=== PATIENT | female | born 2000 | race Caucasian/White ===

== ENCOUNTER 2021-01-16 20:39 | Emergency (ER) | payer BC ==
--- NOTE | 2021-01-16 22:28 | XR ---
INDICATION: Patient age:Female; 20 years old; Reason for study: left foot pain and swelling ; [facility]. COMPARISON: TECHNIQUE: The left foot examined in the AP, oblique, and lateral projections. FINDINGS: No evidence of any acute osseous pathology. No evidence of soft tissue swelling. Joints are preserve d. IMPRESSION: No evidence of acute fracture.
--- NOTE | 2021-01-16 22:30 | XR ---
EXAMINATION TYPE: XR ankle complete LT DATE OF EXAM: 01/16/2021 CLINICAL HISTORY: Pain TECHNIQUE: Frontal, lateral and oblique images of the left ankle are obtained. COMPARISON: Foot radiographs same day. FINDINGS: There is no acute fracture/dislocation evident in the left ankle. The ankle mortise appea rs within normal limits. The overlying soft tissue appears unremarkable. IMPRESSION: There is no acute fracture or dislocation in the left ankle.
--- NOTE | 2021-01-17 00:11 | ED ---
Lower Extremity Injury HPI - General Chief Complaint: Extremity Injury, Lower Stated Complaint: Extremity Pain,Lt Foot Time Seen by Provider: 01/17/21 00:09 Source: patient, family, RN notes reviewed, old records reviewed Mode of arrival: ambulatory Limitations: no limitations - History of Present Illness Initial Comments: This is a 20-year-old female to the emergency department for evaluation patient presents today for evaluation of foot pain patient is having left foot pain worse in the morning worse when she walks no significant other complaints. No specific trauma. Patient is able to ambulate without significant difficulty. MD Complaint: foot injury (left) -: week(s) Injury: Foot: Left, Toes: Left Type of Injury: hyperextension, hyperflexion Place: home Severity: moderate Severity scale (1-10): 6 Improves With: nothing Worsens With: weight bearing, movement, palpation Context: running, walking Associated Symptoms: swelling, numbness Treatments Prior to Arrival: NSAIDS - Related Data Allergies Allergy/AdvReac Type Severity Reaction Status Date / Time No Known Allergies Allergy Verified 01/16/21 21:35 Review of Systems ROS Statement: Those systems with pertinent positive or pertinent negative responses have been documented in the HPI. ROS Other: All systems not noted in ROS Statement are negative. Past Medical History Past Medical History: No Reported History History of Any Multi-Drug Resistant Organisms: None Reported Past Surgical History: No Surgical Hx Reported Past Psychological History: No Psychological Hx Reported Smoking Status: Never smoker Past Alcohol Use History: None Reported Past Drug Use History: None Reported General Exam Limitations: no limitations General appearance: alert, in no apparent distress Head exam: Present: atraumatic, normocephalic, normal inspection Eye exam: Present: normal appearance, PERRL, EOMI. Absent: scleral icterus, conjunctival injection, periorbital swelling ENT exam: Present: normal exam, mucous membranes moist Neck exam: Present: normal inspection. Absent: tenderness, meningismus, lymphadenopathy Respiratory exam: Present: normal lung sounds bilaterally. Absent: respiratory distress, wheezes, rales, rhonchi, stridor Cardiovascular Exam: Present: regular rate, normal rhythm, normal heart sounds. Absent: systolic murmur, diastolic murmur, rubs, gallop, clicks GI/Abdominal exam: Present: soft, normal bowel sounds. Absent: distended, tenderness, guarding, rebound, rigid Extremities exam: Present: normal inspection, full ROM, normal capillary refill. Absent: tenderness, pedal edema, joint swelling, calf tenderness Back exam: Present: normal inspection Neurological exam: Present: alert, oriented X3, CN II-XII intact Psychiatric exam: Present: normal affect, normal mood Skin exam: Present: warm, dry, intact, normal color. Absent: rash Course Vital Signs 01/16/21 21:31 Temperature 97.8 F Pulse Rate 99 Respiratory 20 Rate Blood Pressure 118/80 O2 Sat by Pulse 99 Oximetry - Reevaluation(s) Reevaluation #1: 01/17/21 01:17 Medical record is reviewed Reevaluation #2: 01/17/21 01:17 Patient informed results and questions answered Medical Decision Making - Medical Decision Making 20 female to the emergency department with signs and symptoms of left foot plantar fasciitis with symptoms improving throughout the day worse in the morning. Patient will continue Motrin and Tylenol given exercises and can be discharged home - Radiology Data Radiology results: report reviewed (XR left foot and ankle are negative for significant acute disease), image reviewed Disposition Clinical Impression: Left foot pain, Plantar fasciitis of left foot Disposition: HOME SELF-CARE Condition: Good Instructions (If sedation given, give patient instructions): Plantar Fasciitis (ED), Foot Sprain (ED), Plantar Fasciitis Exercises (ED) Is patient prescribed a controlled substance at d/c from ED?: No Referrals: None,Stated [Primary Care Provider] - 1-2 days
[2021-01-17 01:37] VITALS: PULSE 75; RESP 18
[2021-01-17 01:38] VITALS: BP 118/79; TEMP 98.3
== END 2021-01-17 01:39 | disposition home or self-care (01) ==
LOC: EC 20:39
DX: M72.2 Plantar fascial fibromatosis (principal)
CPT/HCPCS: 99283

== ENCOUNTER → 2021-04-20 | Outpatient (CLI) | payer BC ==
--- NOTE | 2021-04-20 11:47 | US ---
EXAMINATION TYPE: US kidneys/renal and bladder DATE OF EXAM: 04/20/2021 COMPARISON: NONE CLINICAL HISTORY: 20-year-old female E28.2 POLYCYSTIC OVARIAN SYNDROME, R/O adrenal mass. TECHNIQUE: Multiple sonographic images of the kidneys and bladder are obtained. FINDINGS: EXAM MEASUREMENTS: Right Kidney: 10.7 x 2.8 x 5.3 cm Left Kidney: 10.6 x 4.9 x 4.6 cm Right Kidney: No hydronephrosis or masses seen Superior to kidney scanned at area of adrenals. No evidence sonographic abnormality. Left Kidney: No hydronephrosis or masses seen. Superior to kidney is extensive overlying bowel gas, not well seen. Bladder: wnl IMPRESSION: 1. No hydronephrosis. 2. Suboptimal visualization above the left kidney due to bowel gas. 3. No obvious mass above the right kidney. Note that ultrasound has very limited utility in assessing the adrenal glands. If persistent concern for adrenal mass, a CT or MRI can be considered.
--- NOTE | 2021-04-20 11:50 | US ---
EXAMINATION TYPE: US transvaginal DATE OF EXAM: 04/20/2021 COMPARISON: NONE CLINICAL HISTORY: 20-year-old female E28.2 POLYCYSTIC OVARIAN SYNDROME. TECHNIQUE: Transvaginal (TV). Anatomy not well visualized transabdominally. Date of LMP: 04-19-21 FINDINGS: EXAM MEASUREMENTS: Uterus: 6.9 x 3.6 x 4.6 cm Endometrial Stripe: 0.4 cm Right Ovary: 4.3 x 1.6 x 1.5 cm for a volume of 5.4 mL. Left Ovary: 3.5 x 1.8 x 2.3 cm for a volume of 7.5 mL. 1. Uterus: Anteverted and otherwise wnl. Query a small scar along the anterior lower uter ine segment characterized by rounded hypoechoic area. If no prior section, this could represent some prominent mitral vessels. 2. Endometrium: wnl 3. Right Ovary: Multiple small follicles are noted, largest measuring 5 mm. 4. Left Ovary: Multiple small follicles are noted, largest measuring 6 mm. 5. Bilateral Adnexa: wnl 6. Posterior cul-de-sac: wnl IMPRESSION: 1. Endometrial stripe measuring 4 mm. 2. Query a small scar along the anterior lower uterine segment. If no prior surgery, this c ould represent some prominent myometrial vessels. 3. Ovarian volumes as above. There are numerous small follicles in both ovaries, largest measuring 6 mm.
== END | disposition home or self-care (01) ==
LOC: RADUSWWP 07:48
PROVIDERS: ATTEND Family Medicine
DX: E28.2 Polycystic ovarian syndrome (principal)
CPT/HCPCS: 76770; 76830

== ENCOUNTER → 2021-10-22 | Outpatient (CLI) | payer BC | END | disposition home or self-care (01) | LOC: LABWHC1 11:30 | PROVIDERS: ATTEND Obstetrics & Gynecology | DX: E55.9 Vitamin D deficiency, unspecified (principal); L68.0 Hirsutism; N95.1 Menopausal and female climacteric states | CPT/HCPCS: 36415; 82306; 82626; 83498; 83525; 84402 ==

== ENCOUNTER → 2022-01-05 | Outpatient (CLI) | payer BC ==
--- NOTE | 2022-01-05 09:35 | CA ---
Transthoracic Echo Report Name: Nba Coon Age: 21 Gender: F : 2000 Exam Date: 01/05/2022 08:35 Exam Location: [facility] Ht (in): 63 Wt (lb): 135 Ordering Physician: Subhash Orellana DO Attending/Referring Phys: Neuro Ophthalmologist Brittany Simons RDCS Procedure CPT: Indications: R00.2 palpitations Cardiac Hx: Technical Quality: Excellent Contrast 1: Total Dose (mL): Contrast 2: Total Dose (mL): MEASUREMENTS (Male / Female) Normal Values 2D ECHO LV Diastolic Diameter PLAX 3.8 cm 4.2 - 5.9 / 3.9 - 5.3 cm LV Systolic Diameter PLAX 2.6 cm IVS Diastolic Thickness 0.8 cm 0.6 - 1.0 / 0.6 - 0.9 cm LVPW Diastolic Thickness 0.8 cm 0.6 - 1.0 / 0.6 - 0.9 cm LV Relative Wall Thickness 0.4 RV Internal Dim ED PLAX 2.2 cm LA Systolic Diameter LX 2.6 cm 3.0 - 4.0 / 2.7 - 3.8 cm LA Volume 26.4 cm??? 18 - 58 / 22 - 52 cm??? M-MODE Aortic Root Diameter MM 2.5 cm MV E Point Septal Separation 0.3 cm AV Cusp Separation MM 1.8 cm DOPPLER AV Peak Velocity 148.2 cm/s AV Peak Gradient 8.8 mmHg MV Area PHT 5.0 cm??? Mitral E Point Velocity 96.0 cm/s Mitral A Point Velocity 64.2 cm/s Mitral E to A Ratio 1.5 MV Deceleration Time 150.7 ms MV E' Velocity 19.3 cm/s Mitral E to MV E' Ratio 5.0 TR Peak Velocity 183.6 cm/s TR Peak Gradient 13.5 mmHg Right Ventricular Systolic Press 18.5 mmHg FINDINGS Left Ventricle Left ventricular ejection fraction is estimated at 60-65 %. Left ventricular cavity size normal. Left ventricular wall thickness normal. Right Ventricle Normal right ventricular size and function. Right ventricular systolic pressure within normal limits. Right Atrium Normal right atrial size. Left Atrium Normal left atrial size. No evidence for an atrial septal defect. Mitral Valve Structurally normal mitral valve. No mitral stenosis, regurgitation or prolapse. Aortic Valve Trileaflet aortic valve. No aortic valve stenosis or regurgitation. Tricuspid Valve Structurally normal tricuspid valve. Trace to mild tricuspid regurgitation. Pulmonic Valve Structurally normal pulmonic valve. Trace to mild pulmonic regurgitation. Pericardium Normal pericardium. No pericardial effusion. Aorta Normal size aortic root and proximal ascending aorta. CONCLUSIONS Left ventricular ejection fraction 60-65% No mitral regurgitation Trace to mild tricuspid regurgitation RVSP 18 No pericardial effusion Previewed by: Dr. Efren Casanova DO (Electronically Signed) Final Date: 05 January 2022 09:34
== END | disposition home or self-care (01) ==
LOC: RADECHMAIN 07:22
PROVIDERS: ATTEND Family Medicine
DX: I07.1 Rheumatic tricuspid insufficiency (principal); R00.2 Palpitations; H53.2 Diplopia
CPT/HCPCS: 93306

== ENCOUNTER → 2022-01-09 | Outpatient (CLI) | payer BC ==
--- NOTE | 2022-01-09 12:00 | MR ---
EXAMINATION TYPE: MR brain wo/w con DATE OF EXAM: 01/09/2022 COMPARISON: None HISTORY: Diplopia, migraines, hearing issues, memory issues, tingling on half of body, twitching, ran dom extreme anxiety. TECHNIQUE: Multiplanar, multisequence images of the brain and brainstem is performed without and with IV contras t, utilizing 6 mL intravenous Gadavist . FINDINGS: On the T1-weighted sagittal images midline structures including the craniovertebral junction is the v entricles, basal cisterns and sulci over the convexities are within normal limits and there is no mas s effect or shift. On the FLAIR axial images there is no abnormal signal intensity throughout the brain parenchyma. Based on diffusion-weighted imaging, there is no diffusion restriction or acute ischemic event. Follo wing contrast administration, there is no pathological enhancement throughout the brain parenchyma. The posterior fossa including the brainstem, fourth ventricle and cerebellar pontine angles appear no rmal. The intraorbital contents appear normal and symmetric. Visualized paranasal sinuses and mastoid air c ells are well aerated. IMPRESSION: No significant abnormality seen.
== END | disposition home or self-care (01) ==
LOC: RADMRIMAIN 11:00
PROVIDERS: ATTEND Nurse Practitioner Family
DX: H53.2 Diplopia (principal)
CPT/HCPCS: 70553; A9585

== ENCOUNTER 2023-03-16 13:46 | Emergency (ER) | payer BC ==
--- NOTE | 2023-03-16 14:31 | ED ---
Headache HPI - General Source: patient, RN notes reviewed Mode of arrival: ambulatory Limitations: no limitations <Bessy Junior - Last Filed: 03/16/23 14:30> - General Source: RN notes reviewed, old records reviewed Mode of arrival: ambulatory Limitations: no limitations - History of Present Illness MD Complaint: other (Chest pain shortness of breath) -: days(s) Location: left Severity: mild Quality: sharp Consistency: constant Improves With: nothing Worsens With: none Associated Symptoms: weakness Other Symptoms: chest pain Treatments Prior to Arrival: none <Maco Erickson - Last Filed: 03/16/23 20:09> - General Chief Complaint: Headache Stated Complaint: Headache/chest pain Time Seen by Provider: 03/16/23 14:30 - History of Present Illness Initial Comments: Patient is a 22-year-old female presenting to the ER with a chief complaint of headache and chest pain. Patient states going on for the past 3-4 days. Patient does have a history of migraines. Patient states her chest pain does radiate to the back on her left side. She does endorse some mild shortness of breath. Denies any fevers or chills. (Bessy Junior) This is a 22-year-old female presenting with chest pain persistent chest pain or shortness of breath at times. Specially with activity. Patient has significant left lower extremity pain (Maco Erickson) - Related Data Home Medications Medication Instructions Recorded Confirmed Vit No.180/Iron/Folic 1 each PO DAILY 08/31/22 09/01/22 [ Plus Tablet] Previous Rx's Medication Instructions Recorded Ibuprofen [Motrin] 600 mg PO Q6H #40 tab 09/03/22 oxyCODONE HCL [OxyIR] 5 mg PO Q4HR PRN #18 tab 09/03/22 Allergies Allergy/AdvReac Type Severity Reaction Status Date / Time No Known Allergies Allergy Verified 09/01/22 06:30 Review of Systems ROS Other: All systems not noted in ROS Statement are negative. <Bessy Junior - Last Filed: 03/16/23 14:30> ROS Other: All systems not noted in ROS Statement are negative. <Maco Erickson - Last Filed: 03/16/23 20:09> ROS Statement: Those systems with pertinent positive or pertinent negative responses have been documented in the HPI. Past Medical History Past Medical History: No Reported History Additional Past Medical History / Comment(s): Migraines History of Any Multi-Drug Resistant Organisms: None Reported Past Surgical History: Adenoidectomy, Cholecystectomy, Tonsillectomy Past Anesthesia/Blood Transfusion Reactions: No Reported Reaction Past Psychological History: ADD/ADHD Smoking Status: Never smoker Past Alcohol Use History: None Reported Past Drug Use History: None Reported - Past Family History Mother Family Medical History: Cancer, CVA/TIA, Diabetes Mellitus Additional Family Medical History / Comment(s): Factor V leiden Father Family Medical History: Hypertension, Pulmonary Embolus <Bessy Junior - Last Filed: 03/16/23 14:30> General Exam Limitations: no limitations <Bessy Junior - Last Filed: 03/16/23 14:30> General appearance: alert, in no apparent distress, anxious Head exam: Present: atraumatic, normocephalic, normal inspection Eye exam: Present: normal appearance, PERRL, EOMI. Absent: scleral icterus, conjunctival injection, periorbital swelling ENT exam: Present: normal exam, mucous membranes moist Neck exam: Present: normal inspection. Absent: tenderness, meningismus, lymphadenopathy Respiratory exam: Present: normal lung sounds bilaterally. Absent: respiratory distress, wheezes, rales, rhonchi, stridor Cardiovascular Exam: Present: regular rate, normal rhythm, normal heart sounds. Absent: systolic murmur, diastolic murmur, rubs, gallop, clicks GI/Abdominal exam: Present: soft, normal bowel sounds. Absent: distended, tenderness, guarding, rebound, rigid Extremities exam: Present: normal inspection, full ROM, normal capillary refill. Absent: tenderness, pedal edema, joint swelling, calf tenderness Back exam: Present: normal inspection Neurological exam: Present: alert, oriented X3, CN II-XII intact Psychiatric exam: Present: normal affect, normal mood Skin exam: Present: warm, dry, intact, normal color. Absent: rash <Maco Erickson - Last Filed: 03/16/23 20:09> - General Exam Comments Initial Comments: Visual Physical Exam Vital signs reviewed General: Well-appearing, nontoxic, no acute distress. Head: Normocephalic, atraumatic Eyes: PERRLA, EOMI ENT: Airway patent Chest: Nonlabored breathing Skin: No visual rash, normal skin tone Neuro: Alert and oriented 3 Musculoskeletal: No gross abnormalities (Bessy Junior) Course <Maco Erickson - Last Filed: 03/16/23 20:09> Vital Signs 03/16/23 03/16/23 03/16/23 14:12 16:35 17:33 Temperature 98.7 F Pulse Rate 120 H 97 104 H Respiratory 20 18 Rate Blood Pressure 131/91 119/66 O2 Sat by Pulse 99 100 99 Oximetry 03/16/23 20:00 Temperature Pulse Rate 73 Respiratory 18 Rate Blood Pressure 123/81 O2 Sat by Pulse 100 Oximetry - Reevaluation(s) Reevaluation #1: 03/16/23 19:14 Medical records reviewed (Maco Erickson) Reevaluation #2: 03/16/23 19:14 Patient symptoms are improved (Maco Erickson) Reevaluation #3: 03/16/23 19:15 Patient reported results questions answered (Maco Erickson) Reevaluation #4: 03/16/23 19:18 Was pt. sent in by a medical professional or institution (, PA, [facility], urgent care, hospital, or senior care...) When possible be specific @ -no Did you speak to anyone other than the patient for history (EMS, parent, family, police, friend...)? What history was obtained from this source @ -no Did you review nursing and triage notes (agree or disagree)? Why? @ -agree Are old charts reviewed (outside hosp., previous admission, EMS record, old EKG, old radiological studies, urgent care reports/EKG's, senior care records)? Report findings @ -yes Differential Diagnosis (chest pain, altered mental status, abdominal pain women, abdominal pain men, vaginal bleeding, weakness, fever, dyspnea, syncope, headache, dizziness, GI bleed, back pain, seizure, CVA, palpatations, mental health, musculoskeletal)? @ -prior EKG interpreted by me (3pts min.). @ -yes X-rays interpreted by me (1pt min.). @ -yes negative for acute disease CT interpreted by me (1pt min.). @ -no U/S interpreted by me (1pt. min.). @ -no What testing was considered but not performed or refused? (CT, X-rays, U/S, labs)? Why? @ -none What meds were considered but not given or refused? Why? @ -none Did you discuss the management of the patient with other professionals (professionals i.e. , PA, [facility], lab, RT, psych nurse, social sciences lecturer, plasma table operator, teacher, operational intelligence officer, patient case coordinator)? Give summary @ -no Was smoking cessation discussed for >3mins.? @ -no Was critical care preformed (if so, how long)? @ -no Were there social determinants of health that impacted care today? How? (Homelessness, low income, unemployed, alcoholism, drug addiction, transportation, low edu. Level, literacy, decrease access to med. care, mcc, re hab)? @ -none Was there de-escalation of care discussed even if they declined (Discuss DNR or withdrawal of care, Hospice)? DNR status @ -no What co-morbidities impacted this encounter? (DM, HTN, Smoking, COPD, CAD, Cancer, CVA, ARF, Chemo, Hep., AIDS, mental health diagnosis, sleep apnea, morbid obesity)? @ -none Was patient admitted / discharged? Hospital course, mention meds given and route, prescriptions, significant lab abnormalities, going to OR and other pertinent info. @ - Undiagnosed new problem with uncertain prognosis? @ -no Drug Therapy requiring intensive monitoring for toxicity (Heparin, Nitro, Insulin, Cardizem)? @ -no Were any procedures done? @ -no Diagnosis/symptom? @ - Acute, or Chronic, or Acute on Chronic? @ -Acute Uncomplicated (without systemic symptoms) or Complicated (systemic symptoms)? @ -Complicated Side effects of treatment? @ -no Exacerbation, Progression, or Severe Exacerbation? @ -exacerbation Poses a threat to life or bodily function? How? (Chest pain, [place], [place], pneumonia, PE, COPD, DKA, ARF, appy, cholecystitis, CVA, Diverticulitis, Homicidal, Suicidal, threat to staff... and all critical care pts) @ -yes (Maco Erickson) Reevaluation #5: 03/16/23 19:15 Differential Chest Pain: Stable Angina, Unstable Angina, STEMI, NSTEMI Aortic Dissection, Pneumothorax, Musculoskeletal, Esophageal Spasm GERD, Cholecystitis, Pancreatitis, Zoster, this is not meant to be an all-inclusive list. (Maco Erickson) Medical Decision Making <Bessy Junior - Last Filed: 03/16/23 14:30> - Lab Data Result diagrams: 03/16/23 16:19 03/16/23 16:19 - EKG Data -: EKG Interpreted by Me (EKG is sinus tachycardia 118 AL 124 QRS 84 QTc 410) <Maco Erickson - Last Filed: 03/16/23 20:09> - Medical Decision Making I performed the quick note portion of the exam. Electronically signed by Bessy Junior PA-C (Bessy Junior) - Lab Data Lab Results 03/16/23 03/16/23 03/16/23 Range/Units 16:19 16:19 16:19 WBC 7.0 (3.8-10.6) k/uL RBC 4.87 (3.80-5.40) m/uL Hgb 14.7 (11.4-16.0) gm/dL Hct 42.7 (34.0-46.0) % MCV 87.7 (80.0-100.0) fL MCH 30.1 (25.0-35.0) pg MCHC 34.3 (31.0-37.0) g/dL RDW 12.8 (11.5-15.5) % Plt Count 230 (150-450) k/uL MPV 8.4 Neutrophils % 69 % Lymphocytes % 24 % Monocytes % 5 % Eosinophils % 1 % Basophils % 0 % Neutrophils # 4.9 (1.3-7.7) k/uL Lymphocytes # 1.7 (1.0-4.8) k/uL Monocytes # 0.3 (0-1.0) k/uL Eosinophils # 0.1 (0-0.7) k/uL Basophils # 0.0 (0-0.2) k/uL PT 11.3 (10.0-12.5) sec INR 1.0 (<1.2) APTT 25.2 (22.0-30.0) sec D-Dimer <0.17 (<0.60) mg/L FEU Sodium 138 (137-145) mmol/L Potassium 4.3 (3.5-5.1) mmol/L Chloride 106 (98-107) mmol/L Carbon Dioxide 24 (22-30) mmol/L Anion Gap 8 mmol/L BUN 9 (7-17) mg/dL Creatinine 0.66 (0.52-1.04) mg/dL Est GFR (CKD-EPI)AfAm >90 (>60 ml/min/1.73 sqM) Est GFR (CKD-EPI)NonAf >90 (>60 ml/min/1.73 sqM) Glucose 94 (74-99) mg/dL Calcium 9.6 (8.4-10.2) mg/dL Phosphorus 3.3 (2.5-4.5) mg/dL Magnesium 1.7 (1.6-2.3) mg/dL Total Bilirubin 0.5 (0.2-1.3) mg/dL AST 21 (14-36) U/L ALT 15 (4-34) U/L Alkaline Phosphatase 95 (38-126) U/L Troponin I (0.000-0.034) ng/mL NT-Pro-B Natriuret Pep 25 pg/mL Total Protein 7.6 (6.3-8.2) g/dL Albumin 4.8 (3.5-5.0) g/dL HCG, Qual Influenza Type A (PCR) (Not Detectd) Influenza Type B (PCR) (Not Detectd) RSV (PCR) (Not Detectd) SARS-CoV-2 (PCR) (Not Detectd) 03/16/23 03/16/23 03/16/23 Range/Units 16:19 16:19 16:19 WBC (3.8-10.6) k/uL RBC (3.80-5.40) m/uL Hgb (11.4-16.0) gm/dL Hct (34.0-46.0) % MCV (80.0-100.0) fL MCH (25.0-35.0) pg MCHC (31.0-37.0) g/dL RDW (11.5-15.5) % Plt Count (150-450) k/uL MPV Neutrophils % % Lymphocytes % % Monocytes % % Eosinophils % % Basophils % % Neutrophils # (1.3-7.7) k/uL Lymphocytes # (1.0-4.8) k/uL Monocytes # (0-1.0) k/uL Eosinophils # (0-0.7) k/uL Basophils # (0-0.2) k/uL PT (10.0-12.5) sec INR (<1.2) APTT (22.0-30.0) sec D-Dimer (<0.60) mg/L FEU Sodium (137-145) mmol/L Potassium (3.5-5.1) mmol/L Chloride (98-107) mmol/L Carbon Dioxide (22-30) mmol/L Anion Gap mmol/L BUN (7-17) mg/dL Creatinine (0.52-1.04) mg/dL Est GFR (CKD-EPI)AfAm (>60 ml/min/1.73 sqM) Est GFR (CKD-EPI)NonAf (>60 ml/min/1.73 sqM) Glucose (74-99) mg/dL Calcium (8.4-10.2) mg/dL Phosphorus (2.5-4.5) mg/dL Magnesium (1.6-2.3) mg/dL Total Bilirubin (0.2-1.3) mg/dL AST (14-36) U/L ALT (4-34) U/L Alkaline Phosphatase (38-126) U/L Troponin I <0.012 (0.000-0.034) ng/mL NT-Pro-B Natriuret Pep pg/mL Total Protein (6.3-8.2) g/dL Albumin (3.5-5.0) g/dL HCG, Qual Not Detected Influenza Type A (PCR) Not Detected (Not Detectd) Influenza Type B (PCR) Not Detected (Not Detectd) RSV (PCR) Not Detected (Not Detectd) SARS-CoV-2 (PCR) Not Detected (Not Detectd) Disposition <Bessy uJnior - Last Filed: 03/16/23 14:30> Is patient prescribed a controlled substance at d/c from ED?: No Time of Disposition: 20:10 <Maco Erickson - Last Filed: 03/16/23 20:09> Clinical Impression: Chest pain, Headache Disposition: HOME SELF-CARE Condition: Good Instructions (If sedation given, give patient instructions): Chest Pain (ED) Referrals: Subhash Orellana DO [Primary Care Provider] - 1-2 days
[2023-03-16 14:42] VITALS: TEMP 98.7
--- NOTE | 2023-03-16 15:45 | XR ---
EXAMINATION TYPE: XR chest 2V DATE OF EXAM: 03/16/2023 3:41 PM CLINICAL INDICATION:Female, 22 years old with history of chest pain; [facility] COMPARISON: None TECHNIQUE: XR chest 2V Frontal and lateral views of the chest. FINDINGS: Lungs/Pleura: There is no evidence of pleural effusion, focal consolidation, or pneumothorax. Pulmonary vascularity: Unremarkable. Heart/mediastinum: Cardiomediastinal silhouette is unremarkable. Musculoskeletal: No acute osseous pathology. Other findings: None IMPRESSION: No acute cardiopulmonary disease/process.
[2023-03-16] MEDS: SODIUM CHLORIDE 0.9% 1,000 ML IV STA (16:34)
[2023-03-16 16:43] LABS: Basophils % (A) 0 %; Eosinophils # (A) 0.1 k/uL (0-0.7); Eosinophils % (A) 1 %; HCT 42.7 % (34.0-46.0); HGB 14.7 gm/dL (11.4-16.0); Lymphocytes # (A) 1.7 k/uL (1.0-4.8); Lymphocytes % (A) 24 %; MCH 30.1 pg (25.0-35.0); MCHC 34.3 g/dL (31.0-37.0); MCV 87.7 fL (80.0-100.0); Mean Platelet Volume 8.4; Monocytes # (A) 0.3 k/uL (0-1.0); Monocytes % (A) 5 %; Neutrophils # (A) 4.9 k/uL (1.3-7.7); Neutrophils % (A) 69 %; Platelet Count 230 k/uL (150-450); RBC 4.87 m/uL (3.80-5.40); RDW 12.8 % (11.5-15.5)
[2023-03-16 16:56] LABS: ALT 15 U/L (4-34); AST 21 U/L (14-36); African American GFR (CKD) >90 (>60 ml/min/1.73 sqM); Albumin 4.8 g/dL (3.5-5.0); Alkaline Phosphatase 95 U/L (38-126); Anion Gap 8 mmol/L; Blood Urea Nitrogen 9 mg/dL (7-17); Calcium 9.6 mg/dL (8.4-10.2); Carbon Dioxide 24 mmol/L (22-30); Chloride 106 mmol/L (98-107); Glucose 94 mg/dL (74-99); Magnesium 1.7 mg/dL (1.6-2.3); Non-African American GFR(CKD) >90 (>60 ml/min/1.73 sqM); Phosphorus 3.3 mg/dL (2.5-4.5); Potassium 4.3 mmol/L (3.5-5.1); Sodium 138 mmol/L (137-145); Total Bilirubin 0.5 mg/dL (0.2-1.3); Total Protein 7.6 g/dL (6.3-8.2)
[2023-03-16 17:04] LABS: NT-Pro-B-Type Natriuretic Pept 25 pg/mL
[2023-03-16] MEDS: diphenhydrAMINE 50 MG/ML 1 ML VIAL IVP STA (17:23)
--- NOTE | 2023-03-16 17:24 | US ---
EXAMINATION TYPE: US venous doppler duplex LE LT DATE OF EXAM: 03/16/2023 4:57 PM COMPARISON: NONE CLINICAL INDICATION: Female, 22 years old with history of DVT; pain SIDE PERFORMED: Left TECHNIQUE: The lower extremity deep venous system is examined utilizing real time linear array sonog cesario with graded compression, doppler sonography and color-flow sonography. VESSELS IMAGED: Common Femoral Vein Deep Femoral Vein Greater Saphenous Vein * Femoral Vein Popliteal Vein Small Saphenous Vein * Proximal Calf Veins (* superficial vessels) Left Leg: Negative for DVT IMPRESSION: Grayscale, color doppler, spectral doppler imaging performed of the deep veins of the lo wer extremities. There is normal flow, compressibility, vascular waveforms.
[2023-03-16 17:25] LABS: Partial Thromboplastin Time 25.2 sec (22.0-30.0); Prothrombin Time 11.3 sec (10.0-12.5)
[2023-03-16] MEDS: PROCHLORPERAZINE INJ 10 MG/2 ML VIAL IVP STA (17:26)
[2023-03-16] MEDS: KETOROLAC 15 MG/ML 1 ML VIAL IVP STA (17:27)
[2023-03-16 17:52] VITALS: RESP 18
--- NOTE | 2023-03-16 19:46 | CT ---
EXAMINATION TYPE: CT angio chest CT DLP: 269.1 mGycm, Automated exposure control for dose reduction was used. DATE OF EXAM: 03/16/2023 7:06 PM COMPARISON: Chest radiograph same day CLINICAL INDICATION:Female, 22 years old with history of PE; SWANSON and CP x3days. Pressure to forehead. R/O PE. TECHNIQUE/CONTRAST: CTA scan of the thorax is performed with IV Contrast, patient injected with 100ml mL of Isovue 370, M IP images are created and reviewed these are created on a separate workstation.. FINDINGS: Pulmonary Artery: There is no evidence for a filling defect within the pulmonary vasculature to sugge st acute pulmonary embolism. The pulmonary artery is of normal size. Lungs/Pleura: No evidence of focal consolidation, pleural effusion or pneumothorax. Airway: Large airways are patent. Heart: Heart is within normal limits for size. Vasculature: No evidence of aortic aneurysm. Mediastinum: No gross evidence of adenopathy. Musculoskeletal: No acute osseous abnormalities. Mild scoliosis changes of the spine which may be par tially due to patient positioning. Soft Tissues: Unremarkable. Lower neck: No significant findings. Upper Abdomen: No significant findings. IMPRESSION: No evidence of pulmonary embolism.
[2023-03-16 20:29] VITALS: BP 123/81; PULSE 73
== END 2023-03-16 20:35 | disposition home or self-care (01) ==
LOC: EC 13:46
DX: R51.9 Headache, unspecified (principal); R07.89 Other chest pain; Z20.822 Contact with and (suspected) exposure to COVID-19; R00.0 Tachycardia, unspecified
CPT/HCPCS: 36415; 93005; 85379; 83880; 80053; 83735; 84100; 84484; 85025; 85610; 85730; 84703; 87636; 71046; 93971; 71275; 99285; 96374; 96375 ×2; J1200; J0780; J1885; Q9967

== ENCOUNTER → 2023-03-30 | Outpatient (CLI) | payer BC ==
--- NOTE | 2023-03-31 00:23 | CA ---
Transthoracic Echo Report Name: Nba Coon Age: 22 Gender: F : 2000 Exam Date: 03/30/2023 17:54 Exam Location: [facility] Ht (in): 63 Wt (lb): 140 Ordering Physician: Subhash Orellana DO Attending/Referring Phys: Hanny Puga [facility] Computer Graphic Artist Jessica Crockett RDCS Procedure CPT: Indications: R06.09 Other forms of dyspnea Cardiac Hx: Technical Quality: Fair Contrast 1: Total Dose (mL): Contrast 2: Total Dose (mL): MEASUREMENTS (Male / Female) Normal Values 2D ECHO LV Diastolic Diameter PLAX 3.5 cm 4.2 - 5.9 / 3.9 - 5.3 cm LV Systolic Diameter PLAX 2.3 cm IVS Diastolic Thickness 0.9 cm 0.6 - 1.0 / 0.6 - 0.9 cm LVPW Diastolic Thickness 0.8 cm 0.6 - 1.0 / 0.6 - 0.9 cm LV Relative Wall Thickness 0.5 RV Internal Dim ED PLAX 1.9 cm LA Volume 18.3 cm??? 18 - 58 / 22 - 52 cm??? LA Volume Index 10.8 cm???/m??? 16 - 28 cm???/m??? M-MODE Aortic Root Diameter MM 2.5 cm LA Systolic Diameter MM 2.7 cm LA Ao Ratio MM 1.1 AV Cusp Separation MM 2.0 cm DOPPLER AV Peak Velocity 110.6 cm/s AV Peak Gradient 4.9 mmHg AV Mean Velocity 75.6 cm/s AV Mean Gradient 2.6 mmHg AV Velocity Time Integral 18.1 cm LVOT Peak Velocity 102.3 cm/s LVOT Peak Gradient 4.2 mmHg LVOT Velocity Time Integral 17.7 cm MV Area PHT 3.2 cm??? Mitral E Point Velocity 85.5 cm/s Mitral A Point Velocity 100.6 cm/s Mitral E to A Ratio 0.8 MV Deceleration Time 237.6 ms MV E' Velocity 9.8 cm/s Mitral E to MV E' Ratio 8.7 TR Peak Velocity 174.1 cm/s TR Peak Gradient 12.1 mmHg Right Ventricular Systolic Press 17.1 mmHg FINDINGS Left Ventricle Normal Left ventricular size, wall thickness, systolic function with no obvious regional wall motion abnormalities. Normal Left ventricular diastolic filling pattern. Left ventricular ejection fraction is estimated at 55-60 %. Right Ventricle Normal right ventricular size and function. Right ventricular systolic pressure within normal limits. Right Atrium Normal right atrial size. Left Atrium Normal left atrial size. Mitral Valve Structurally normal mitral valve. No mitral stenosis, regurgitation or prolapse. Aortic Valve Trileaflet aortic valve. No aortic valve stenosis or regurgitation. Tricuspid Valve Structurally normal tricuspid valve. Trace tricuspid regurgitation. Pulmonic Valve Structurally normal pulmonic valve. Pericardium No pericardial effusion. Aorta Normal size aortic root and proximal ascending aorta. CONCLUSIONS Normal left ventricular ejection fraction 55-60% No mitral regurgitation Trace tricuspid regurgitation RVSP 17 Previewed by: Dr. Efren Casanova DO (Electronically Signed) Final Date: 31 March 2023 00:22
== END | disposition home or self-care (01) ==
LOC: RADECHMAIN 17:41
PROVIDERS: ATTEND Family Medicine
DX: I36.1 Nonrheumatic tricuspid (valve) insufficiency (principal); R06.09 Other forms of dyspnea
CPT/HCPCS: 93306

== ENCOUNTER 2023-07-24 07:30 | Day surgery (SDC) | payer BC ==
[2023-07-24 07:48] VITALS: BP 127/76; PULSE 93; RESP 18; TEMP 98.5
[2023-07-24] MEDS: IV FLUID CONTINUATION 1,000 ML IV ONE (07:49)
[2023-07-24] MEDS: SODIUM CHLORIDE 0.9% 1,000 ML IV SCH (07:49)
--- NOTE | 2023-07-25 18:25 | P.EPPROC ---
- EP Procedure Note Electrophysiology Procedure Note: Diagnosis Recurrent syncope Twelve-lead EKG shows sinus mechanism 89 beats a minute normal CT narrow QRS normal QT interval Baseline blood pressure 123/76 mmHg baseline heart rate 90 beats a minute Patient was tilted upright from angle of 70 degrees per protocol. No significant change in heart rate or blood pressure in the first 10 minutes Subsequently she had mild sinus tachycardia. She continued to complain of being lightheaded with a headache and a feeling of an adrenaline flores She was laid supine in the end of the procedure Impression Normal twelve-lead EKG No evidence for neurocardiogenic syncope No evidence for orthostatic intolerance No evidence for dysautonomia Patient complained of a variety of symptoms including lightheadedness seeing spots adrenaline flores nausea. She was symptomatic when her heart rate was between 110 220 beats a minute but the heart rate and blood pressure response did not conform to orthostatic intolerance. She was symptomatic during sinus tachycardia
== END 2023-07-24 10:41 | disposition home or self-care (01) ==
LOC: CATHEP 07:30
PROVIDERS: ATTEND Internal Medicine Clinical Cardiac Electrophysiology
DX: O99.891 Other specified diseases and conditions complicating pregnancy (principal); R55 Syncope and collapse; R00.2 Palpitations; R07.89 Other chest pain; R06.00 Dyspnea, unspecified; R94.39 Abnormal result of other cardiovascular function study; Z3A.31 31 weeks gestation of pregnancy; Z79.899 Other long term (current) drug therapy
CPT/HCPCS: 81025; 93660

== ENCOUNTER 2023-12-01 19:28 | Emergency (ER) | payer BC ==
--- NOTE | 2023-12-01 19:51 | ED ---
Headache HPI <KojoMary - Last Filed: 12/01/23 19:48> <Shadia Camarillo - Last Filed: 12/02/23 17:53> - General Stated Complaint: Migraine Time Seen by Provider: 12/01/23 19:48 - History of Present Illness Initial Comments: Quick [id number] female presenting for headache x 8 days. Patient states she does have a history of migraines with aura however reports this feels different and is not relieved with migraine medication. Also reports she had a syncopal event 6 days ago after a hot shower, however reports she was laying reed n in bed when the episode occurred and did not hit her head or obtain any injuries. States she does have history of syncopal episodes. Also is complaining of urinary frequency, lower abdominal cramping, and white clumps in her urine. She also reports she is having some intermittent chest tightness. (Mary Varma) 23-year-old female presenting with multiple complaints. Patient reports that she has had a headache for the last 8 days. She does have history of migraine w ith aura. She takes ibuprofen and Ubrelvy, however this has not alleviated her headache. She also reports that 6 days ago after taking a hot shower she started to experience a ringing in her ears and she knew she was about to pass out. She sat down and briefly passed out. She does have history of syncopal episodes. She is also complaining of urinary frequency. She states that at times she sees white clumps in her urine. (Shadia Camarillo) - Related Data Previous Rx's Medication Instructions Recorded Ketorolac [Toradol] 10 mg PO Q6HR PRN #12 tab 12/01/23 Allergies Allergy/AdvReac Type Severity Reaction Status Date / Time No Known Allergies Allergy Verified 12/01/23 20:08 Review of Systems ROS Other: All systems not noted in ROS Statement are negative. <VarmaMary - Last Filed: 12/01/23 19:48> ROS Other: All systems not noted in ROS Statement are negative. <Shadia Camarillo - Last Filed: 12/02/23 17:53> ROS Statement: Those systems with pertinent positive or pertinent negative responses have been documented in the HPI. Past Medical History Past Medical History: No Reported History Additional Past Medical History / Comment(s): SEE DR. YOUSUF Chao & Prateek Migraines History of Any Multi-Drug Resistant Organisms: None Reported Past Surgical History: Adenoidectomy, Section, Tonsillectomy Past Anesthesia/Blood Transfusion Reactions: No Reported Reaction Smoking Status: Vaper - Past Family History Mother Family Medical History: Cancer, CVA/TIA, Diabetes Mellitus Additional Family Medical History / Comment(s): Factor V leiden Father Family Medical History: Hypertension, Pulmonary Embolus <Mary Varma - Last Filed: 12/01/23 19:48> General Exam <Mary Varma - Last Filed: 12/01/23 19:48> Limitations: no limitations General appearance: alert, in no apparent distress Head exam: Present: atraumatic, normocephalic, normal inspection Eye exam: Present: normal appearance, PERRL, EOMI Pupils: Present: normal accommodation Neck exam: Present: normal inspection. Absent: meningismus Respiratory exam: Present: normal lung sounds bilaterally. Absent: respiratory distress, wheezes, rales, rhonchi, stridor Cardiovascular Exam: Present: regular rate, normal rhythm, normal heart sounds. Absent: systolic murmur, diastolic murmur, rubs, gallop, clicks Neurological exam: Present: alert, oriented X3 Expanded Patient oriented to: Present: person, place, time Speech: Present: fluid speech Cranial nerves: EOM's Intact: Normal Cerebellar function: Finger to Nose: Normal, Heel to Zamora: Normal Motor strength exam: RUE: 5, LUE: 5, RLE: 5, LLE: 5 Eye Response: (4) open spontaneously Motor Response: (6) obeys commands Verbal Response: (5) oriented Jo-Ann Total: 15 Psychiatric exam: Present: normal affect, normal mood Skin exam: Present: warm, dry <Shadia Camarillo - Last Filed: 12/02/23 17:53> - General Exam Comments Initial Comments: Visual Physical Exam General: Well-appearing, nontoxic, no acute distress. Head: Normocephalic, atraumatic Eyes: PERRLA, EOMI ENT: Airway patent Chest: Nonlabored breathing Skin: No visual rash, normal skin tone Neuro: Alert and oriented 3 Musculoskeletal: No gross abnormalities (Mary Varma) Course Vital Signs 12/01/23 12/01/23 20:05 23:59 Temperature 98.0 F Pulse Rate 86 61 Respiratory 16 18 Rate Blood Pressure 149/90 119/82 O2 Sat by Pulse 100 100 Oximetry Medical Decision Making <Mary Varma - Last Filed: 12/01/23 19:48> - Lab Data Result diagrams: 12/01/23 21:05 12/01/23 21:05 <MarquiseZahiracindy - Last Filed: 12/02/23 17:53> - Medical Decision Making I completed the quick note portion of this chart signed Mary Varma PA-C (Mary Varma) Was pt. sent in by a medical professional or institution (, PA, DIRECTOR PATIENT FINANCIAL SERVICES, urgent care, hospital, or alf...) When possible be specific @ -No Did you speak to anyone other than the patient for history (EMS, parent, family, police, friend...)? What history was obtained from this source @ -No Did you review nursing and triage notes (agree or disagree)? Why? @ -I reviewed and agree with nursing and triage notes Were old charts reviewed (outside hosp., previous admission, EMS record, old EKG, old radiological studies, urgent care reports/EKG's, alf records)? Report findings @ -No old charts were reviewed Differential Diagnosis (chest pain, altered mental status, abdominal pain women, abdominal pain men, vaginal bleeding, weakness, fever, dyspnea, syncope, headache, dizziness, GI bleed, back pain, seizure, CVA, palpatations, mental health, musculoskeletal)? @ -MDM Differential Headache: Migraine, tension, cluster, carbon monoxide, central venous thrombosis, pension karma temporal arteritis, acute closure glaucoma, intercranial hemorrhage, mastoiditis, sinusitis, head injury this is not meant to be an all-inclusive list. EKG interpreted by me (3pts min.). @ -EKG shows sinus rhythm with sinus arrhythmia ventricular rate 81. NE interval 148. QRS 86. QT 341. QTc 378. No ST deviation. Normal R wave progression. X-rays interpreted by me (1pt min.). @ -None done CT interpreted by me (1pt min.). @ -CT brain without contrast shows no acute intracranial process. U/S interpreted by me (1pt. min.). @ -None done What testing was considered but not performed or refused? (CT, X-rays, U/S, labs)? Why? @ -None What meds were considered but not given or refused? Why? @ -None Did you discuss the management of the patient with other professionals (karena kinsey i.e. , PA, DIRECTOR PATIENT FINANCIAL SERVICES, lab, RT, psych nurse, health care social worker, lumite injector, teacher, control systems drafting officer, showcase trimmer)? Give summary @ -No Was smoking cessation discussed for >3mins.? @ -No Was critical care preformed (if so, how long)? @ -No Were there social determinants of health that impacted care today? How? (Homelessness, low income, unemployed, alcoholism, drug addiction, transportation, low edu. Level, literacy, decrease access to med. care, long-term, rehab)? @ -No Was there de-escalation of care discussed even if they declined (Discuss DNR or withdrawal of care, Hospice)? DNR status @ -No What co-morbidities impacted this encounter? (DM, HTN, Smoking, COPD, CAD, Cancer, CVA, ARF, Chemo, Hep., AIDS, mental health diagnosis, sleep apnea, morbid obesity)? @ -None Was patient admitted / discharged? Hospital course, mention meds given and route, prescriptions, significant lab abnormalities, going to OR and other pertinent info. @ -23-year-old female presenting with multiple complaints including headache and a syncopal episode that occurred 6 days ago. History of migraines and syn copal episodes. Workup is initiated by triage and patient was later placed in a room and evaluated by myself. Lab work is grossly unremarkable. Negative hCG. CT shows no acute intracranial process and EKG shows sinus rhythm with sinus arrhythmia. Patient reports improvement in her headache after migraine cocktail. She is educated on today's findings. Discharged. Follow-up with PCP. Report back to ER with any new or worsening symptoms. Discussed return parameters and answered all questions. Patient conveyed verbal understanding and agreed to the plan. I discussed this case in detail with my attending Dr. Montilla Undiagnosed new problem with uncertain prognosis? @ -No Drug Therapy requiring intensive monitoring for toxicity (Heparin, Nitro, Insulin, Cardizem)? @ -No Were any procedures done? @ -No Diagnosis/symptom? @ -Migraine Acute, or Chronic, or Acute on Chronic? @ -Acute on chronic Uncomplicated (without systemic symptoms) or Complicated (systemic symptoms)? @ -Uncomplicated Side effects of treatment? @ -No Exacerbation, Progression, or Severe Exacerbation? @ -No Poses a threat to life or bodily function? How? (Chest pain, USA, OR, pneumonia, PE, COPD, DKA, ARF, appy, cholecystitis, CVA, Diverticulitis, Homicidal, Suicidal, threat to staff... and all critical care pts) @ -Low likelihood (Shadia Camarillo) - Lab Data Lab Results 12/01/23 12/01/23 12/01/23 Range/Units 20:14 20:14 21:05 WBC 7.2 (3.8-10.6) k/uL RBC 4.68 (3.80-5.40) m/uL Hgb 14.2 (11.4-16.0) gm/dL Hct 40.5 (34.0-46.0) % MCV 86.6 (80.0-100.0) fL MCH 30.4 (25.0-35.0) pg MCHC 35.1 (31.0-37.0) g/dL RDW 12.9 (11.5-15.5) % Plt Count 256 (150-450) k/uL MPV 7.9 Neutrophils % 68 % Lymphocytes % 26 % Monocytes % 4 % Eosinophils % 1 % Basophils % 0 % Neutrophils # 4.9 (1.3-7.7) k/uL Lymphocytes # 1.8 (1.0-4.8) k/uL Monocytes # 0.3 (0-1.0) k/uL Eosinophils # 0.0 (0-0.7) k/uL Basophils # 0.0 (0-0.2) k/uL Sodium (137-145) mmol/L Potassium (3.5-5.1) mmol/L Chloride (98-107) mmol/L Carbon Dioxide (22-30) mmol/L Anion Gap mmol/L BUN (7-17) mg/dL Creatinine (0.52-1.04) mg/dL Est GFR (CKD-EPI)AfAm (>60 ml/min/1.73 sqM) Est GFR (CKD-EPI)NonAf (>60 ml/min/1.73 sqM) Glucose (74-99) mg/dL Plasma Lactic Acid Harish (0.7-2.0) mmol/L Calcium (8.4-10.2) mg/dL Total Bilirubin (0.2-1.3) mg/dL AST (14-36) U/L ALT (4-34) U/L Alkaline Phosphatase (38-126) U/L Troponin I (0.000-0.034) ng/mL Total Protein (6.3-8.2) g/dL Albumin (3.5-5.0) g/dL Urine Color Colorless Urine Appearance Clear (Clear) Urine pH 5.5 (5.0-8.0) Ur Specific [place] 1.013 (1.001-1.035) Urine Protein Negative (Negative) Urine Glucose (UA) Negative (Negative) Urine Ketones Negative (Negative) Urine Blood Negative (Negative) Urine Nitrite Negative (Negative) Urine Bilirubin Negative (Negative) Urine Urobilinogen <2.0 (<2.0) mg/dL Ur Leukocyte Esterase Negative (Negative) Urine HCG, Qual Not Detected (Not Detectd) 12/01/23 12/01/23 12/01/23 Range/Units 21:05 21:05 21:05 WBC (3.8-10.6) k/uL RBC (3.80-5.40) m/uL Hgb (11.4-16.0) gm/dL Hct (34.0-46.0) % MCV (80.0-100.0) fL MCH (25.0-35.0) pg MCHC (31.0-37.0) g/dL RDW (11.5-15.5) % Plt Count (150-450) k/uL MPV Neutrophils % % Lymphocytes % % Monocytes % % Eosinophils % % Basophils % % Neutrophils # (1.3-7.7) k/uL Lymphocytes # (1.0-4.8) k/uL Monocytes # (0-1.0) k/uL Eosinophils # (0-0.7) k/uL Basophils # (0-0.2) k/uL Sodium 138 (137-145) mmol/L Potassium 4.2 (3.5-5.1) mmol/L Chloride 105 (98-107) mmol/L Carbon Dioxide 24 (22-30) mmol/L Anion Gap 9 mmol/L BUN 16 (7-17) mg/dL Creatinine 0.74 (0.52-1.04) mg/dL Est GFR (CKD-EPI)AfAm >90 (>60 ml/min/1.73 sqM) Est GFR (CKD-EPI)NonAf >90 (>60 ml/min/1.73 sqM) Glucose 92 (74-99) mg/dL Plasma Lactic Acid Harish 0.9 (0.7-2.0) mmol/L Calcium 10.1 (8.4-10.2) mg/dL Total Bilirubin 0.5 (0.2-1.3) mg/dL AST 20 (14-36) U/L ALT 11 (4-34) U/L Alkaline Phosphatase 66 (38-126) U/L Troponin I <0.012 (0.000-0.034) ng/mL Total Protein 7.8 (6.3-8.2) g/dL Albumin 5.2 H (3.5-5.0) g/dL Urine Color Urine Appearance (Clear) Urine pH (5.0-8.0) Ur Specific [place] (1.001-1.035) Urine Protein (Negative) Urine Glucose (UA) (Negative) Urine Ketones (Negative) Urine Blood (Negative) Urine Nitrite (Negative) Urine Bilirubin (Negative) Urine Urobilinogen (<2.0) mg/dL Ur Leukocyte Esterase (Negative) Urine HCG, Qual (Not Detectd) Disposition <Mary Varma - Last Filed: 12/01/23 19:48> Is patient prescribed a controlled substance at d/c from ED?: No Time of Disposition: 23:50 <Shadia Camarillo - Last Filed: 12/02/23 17:53> Clinical Impression: Migraine Disposition: HOME SELF-CARE Condition: Good Instructions (If sedation given, give patient instructions): Migraine Headache (ED) Additional Instructions: Follow up with PCP. Back to ER if any new or worsening symptoms. Take medication as prescribed, do not combine with other NSAIDs such as ibuprofen or naproxen Prescriptions: Ketorolac [Toradol] 10 mg PO Q6HR PRN #12 tab PRN Reason: Pain Referrals: Subhash Orellana DO [Primary Care Provider] - 1-2 days
[2023-12-01 20:08] VITALS: TEMP 98
[2023-12-01 20:29] LABS: Appearance,Urine Clear (Clear); Bilirubin,Urine Negative (Negative); Blood,Urine Negative (Negative); Color,Urine Colorless; Glucose,Urine (UA) Negative (Negative); Ketones,Urine Negative (Negative); Leukocyte Esterase,Urine Negative (Negative); Nitrite,Urine Negative (Negative); PH, Urine 5.5 (5.0-8.0); Protein,Urine Negative (Negative); Specific Gravity,Urine 1.013 (1.001-1.035); Urobilinogen,Urine <2.0 mg/dL (<2.0)
[2023-12-01 21:39] LABS: Basophils % (A) 0 %; Eosinophils % (A) 1 %; HCT 40.5 % (34.0-46.0); HGB 14.2 gm/dL (11.4-16.0); Lymphocytes # (A) 1.8 k/uL (1.0-4.8); Lymphocytes % (A) 26 %; MCH 30.4 pg (25.0-35.0); MCHC 35.1 g/dL (31.0-37.0); MCV 86.6 fL (80.0-100.0); Mean Platelet Volume 7.9; Monocytes # (A) 0.3 k/uL (0-1.0); Monocytes % (A) 4 %; Neutrophils # (A) 4.9 k/uL (1.3-7.7); Neutrophils % (A) 68 %; Platelet Count 256 k/uL (150-450); RBC 4.68 m/uL (3.80-5.40); RDW 12.9 % (11.5-15.5); WBC 7.2 k/uL (3.8-10.6)
[2023-12-01 21:52] LABS: ALT 11 U/L (4-34); AST 20 U/L (14-36); African American GFR (CKD) >90 (>60 ml/min/1.73 sqM); Albumin 5.2 g/dL (3.5-5.0); Alkaline Phosphatase 66 U/L (38-126); Anion Gap 9 mmol/L; Blood Urea Nitrogen 16 mg/dL (7-17); Calcium 10.1 mg/dL (8.4-10.2); Carbon Dioxide 24 mmol/L (22-30); Chloride 105 mmol/L (98-107); Glucose 92 mg/dL (74-99); Non-African American GFR(CKD) >90 (>60 ml/min/1.73 sqM); Potassium 4.2 mmol/L (3.5-5.1); Sodium 138 mmol/L (137-145); Total Bilirubin 0.5 mg/dL (0.2-1.3); Total Protein 7.8 g/dL (6.3-8.2)
--- NOTE | 2023-12-01 21:59 | CT ---
EXAMINATION TYPE: CT brain wo con DATE OF EXAM: 12/01/2023 COMPARISON: None INDICATION: migraine for 8 days DLP: 1160.9 mGycm, Automated exposure control for dose reduction was used. CONTRAST: None CT of the brain is performed utilizing 3 mm thick sections through the posterior fossa and 3 mm thick sections through the remaining calvarium. Study is performed within 24 hours of arrival to the hosp [place]. No abnormal hyperdensity is present to suggest an acute intracranial hemorrhage. No mass lesion is evident. No acute infarcts are evident. Ventricles and sulci are appropriate for the patient age. Paranasal sinuses and mastoid air cells within the [id number] are clear. IMPRESSION: 1. No acute intracranial process. Follow up MRI can be performed as clinically indicated. [facility], Workstation: [email or web address], 12/01/2023 9:57 PM
[2023-12-01] MEDS: diphenhydrAMINE 50 MG/ML 1 ML VIAL IVP STA (23:03)
[2023-12-01] MEDS: SODIUM CHLORIDE 0.9% 1,000 ML IV ONE (23:05)
[2023-12-01] MEDS: METOCLOPRAMIDE 5 MG/ML 2 ML VIAL IVP STA (23:05)
[2023-12-01] MEDS: KETOROLAC 15 MG/ML 1 ML VIAL IVP STA (23:05)
[2023-12-02 00:07] VITALS: BP 119/82; PULSE 61; RESP 18
== END 2023-12-02 00:07 | disposition home or self-care (01) ==
LOC: EC 19:28
DX: G43.909 Migraine, unspecified, not intractable, without status migrainosus (principal); I49.8 Other specified cardiac arrhythmias; F17.290 Nicotine dependence, other tobacco product, uncomplicated
CPT/HCPCS: 36415; 93005; 80053; 83605; 84484; 85025; 81003; 81025; 70450; 99284; 96374; 96375; 96361; J2765; J1885